=== PATIENT | female | born 1995 | race Caucasian/White ===

== ENCOUNTER 2017-05-22 19:13 | Inpatient (IN) | payer OTHER ==
[~2017-05-22] VITALS: Ht 167.6 cm; Wt 65.8 kg
[2017-05-22] MEDS ORDERED: OLANZAPINE 10 MG VIAL IM ONE (20:30)
[2017-05-22 20:45] LABS: BASOPHILS % (AUTO) 0.3 % (0.0-2.0); EOSINOPHILS # (AUTO) 0.1 /CMM (0.0-0.7); EOSINOPHILS % (AUTO) 0.6 % (0.0-6.0); HEMATOCRIT 39 % (33-45); HEMOGLOBIN 13.9 g/dL (11.5-14.8); LYMPHOCYTES # (AUTO) 2.2 /CMM (0.8-4.8); LYMPHOCYTES % (AUTO) 15.1 % (20.0-44.0); MEAN CORPUSCULAR HEMOGLOBIN 32 PG (26.0-33.0); MEAN CORPUSCULAR HGB CONC 36 g/dl (31.0-36.0); MEAN CORPUSCULAR VOLUME 90 fL (82-100); MONOCYTES # (AUTO) 1.2 /CMM (0.1-1.30); MONOCYTES % (AUTO) 8.2 % (2.0-12.0); NEUTROPHILS # (AUTO) 10.8 /CMM (1.8-8.9); NEUTROPHILS % (AUTO) 75.8 % (43.0-81.0); PLATELET COUNT (AUTO) 352 /CMM (150-450); RDW COEFFICIENT OF VARIATION 12.3 (11.5-15.0); RED BLOOD CELL COUNT(AUTO) 4.31 MIL/uL (4.0-5.2); WHITE BLOOD COUNT (AUTO) 14.3 K/uL (4.3-11.0)
[2017-05-22 20:57] LABS: CALCIUM, SERUM 9.3 mg/dL (8.5-10.1); CARBON DIOXIDE 22 mmol/L (21-32); CHLORIDE 105 mmol/L (98-107); CREATININE 0.7 mg/dL (0.6-1.3); GLUCOSE 90 mg/dL (74-106); POTASSIUM 3.3 mmol/L (3.5-5.1); SODIUM SERUM 138 mmol/L (136-145); UREA NITROGEN, BLOOD 7 mg/dL (7-18)
[2017-05-22 21:04] LABS: ALANINE AMINOTRANSFERASE 29 U/L (12-78); ALCOHOL, BLOOD < 3 mg/dL (0-0); ALKALINE PHOSPHATASE 45 U/L (46-116); ASPARTATE AMINOTRANSFERASE 26 U/L (15-37); BILIRUBIN,DIRECT 0.2 mg/dL (0.0-0.2); BILIRUBIN,TOTAL 0.6 mg/dL (0.2-1.0); TOTAL PROTEIN, SERUM 7.9 g/dL (6.4-8.2)
[2017-05-22 21:07] LABS: ACETAMINOPHEN 0 ug/ml (10-30); SALICYLATE 0.9 mg/dL (2.8-20.0)
[2017-05-22 23:27] LABS: APPEARANCE,URINE SL CLOUDY (CLEAR); BILIRUBIN,URINE 1+ (NEGATIVE); BLOOD, URINE 3+ Ery/uL (NEGATIVE); KETONES,URINE 3+ (NEGATIVE); LEUKOCYTE ESTERASE ,URINE TRACE (NEGATIVE); NITRITE, URINE NEGATIVE (NEGATIVE); PH,URINE 5.5 (5.0-8.0); PROTEIN,URINE 1+ mg/dl (NEGATIVE); UGLUCOSE NEGATIVE (NEGATIVE); UROBILINOGEN,URINE 0.2 EU/dL (0.2)
[2017-05-22 23:34] LABS: BACTERIA,URINE Moderate /HPF (None Seen); RBC,URINE 21-50 /HPF (0-2); SQUAMOUS EPITHELIAL CELL,UR Moderate /HPF (None Seen)
[2017-05-22 23:35] LABS: COLOR,URINE DARK YELLO (YELLOW)
[2017-05-23] MEDS ORDERED: LORAZEPAM INJ 2 MG/ML VIAL IM/IV PRN (12:30)
[2017-05-23] MEDS ORDERED: LORAZEPAM INJ 2 MG/ML VIAL IM PRN (15:00)
[2017-05-23] MEDS ORDERED: diphenhydrAMINE HCL 50 MG/ML VIAL IM PRN (15:00)
[2017-05-23] MEDS ORDERED: HALOPERIDOL LACTATE INJ 5 MG/ML VIAL IM ONE (15:00)
[2017-05-23] MEDS: METHYLERGONOVINE MALEATE 0.2 MG/ML AMPUL IM SCH (17:45)
[2017-05-23 19:00] VITALS: BP 120/57
[2017-05-23 20:00] VITALS: BP 99/63
[2017-05-23 21:00] VITALS: BP 121/80
[2017-05-23] MEDS: OLANZAPINE 5 MG/TAB.RAPDIS PO SCH (21:05)
[2017-05-23] MEDS: diphenhydrAMINE HCL 50 MG/ML VIAL IM PRN (21:19)
[2017-05-23] MEDS: HALOPERIDOL LACTATE INJ 5 MG/ML VIAL IM PRN (21:19)
[2017-05-23] MEDS ORDERED: LORAZEPAM INJ 2 MG/ML VIAL IM ONE (21:30)
[2017-05-23] MEDS: IV NS 0.9% 1,000 ML IV PRN (21:36)
[2017-05-23 22:00] VITALS: BP 103/60
[2017-05-23 23:00] VITALS: BP 107/64
[2017-05-24] VITALS (22 sets, daily range): BP systolic 101–128; BP diastolic 49–86
[2017-05-24] MEDS: diphenhydrAMINE HCL 50 MG/ML VIAL IM PRN (06:08)
[2017-05-24] MEDS: HALOPERIDOL LACTATE INJ 5 MG/ML VIAL IM PRN ×2 (07:04→22:00)
[2017-05-24] MEDS: OLANZAPINE 5 MG/TAB.RAPDIS PO SCH ×2 (09:38→21:41)
[2017-05-24] MEDS: METHYLERGONOVINE MALEATE 0.2 MG/ML AMPUL IM SCH ×2 (09:38→16:13)
[2017-05-24] MEDS ORDERED: POTASSIUM CHLORIDE 20 MEQ POWDER PACKET PO ONE (17:00)
[2017-05-24] MEDS: IV NS 0.9% 1,000 ML IV PRN (19:47)
[2017-05-25] VITALS (10 sets, daily range): BP systolic 116–140; BP diastolic 53–80
[2017-05-25] MEDS: OLANZAPINE 5 MG/TAB.RAPDIS PO SCH ×2 (09:00→21:52)
[2017-05-25] MEDS: METHYLERGONOVINE MALEATE 0.2 MG/ML AMPUL IM SCH ×2 (09:00→17:00)
[2017-05-26 04:00] VITALS: BP 113/70
[2017-05-26] MEDS: OLANZAPINE 5 MG/TAB.RAPDIS PO SCH (09:00)
[2017-05-26] MEDS: METHYLERGONOVINE MALEATE 0.2 MG/ML AMPUL IM SCH ×2 (09:00→17:00)
[2017-05-26] MEDS ORDERED: MAGNESIUM HYDROXIDE 30 ML UDC PO PRN (19:00)
[2017-05-26] MEDS ORDERED: OLANZAPINE 5 MG/TAB.RAPDIS PO SCH (22:00)
[2017-05-26] MEDS ORDERED: ACETAMINOPHEN 325 MG TABLET PO ONE (23:00)
[2017-05-26] MEDS ORDERED: diphenhydrAMINE HCL 50 MG CAPSULE PO ONE (23:00)
[2017-05-27 04:47] LABS: APPEARANCE,URINE CLEAR (CLEAR); BILIRUBIN,URINE NEGATIVE (NEGATIVE); BLOOD, URINE 3+ Ery/uL (NEGATIVE); COLOR,URINE YELLOW (YELLOW); KETONES,URINE NEGATIVE (NEGATIVE); LEUKOCYTE ESTERASE ,URINE 1+ (NEGATIVE); NITRITE, URINE NEGATIVE (NEGATIVE); PH,URINE 6.5 (5.0-8.0); PROTEIN,URINE NEGATIVE (NEGATIVE); UGLUCOSE NEGATIVE (NEGATIVE); UROBILINOGEN,URINE 0.2 EU/dL (0.2)
[2017-05-27 04:55] LABS: BACTERIA,URINE Rare /HPF (None Seen); SQUAMOUS EPITHELIAL CELL,UR Few /HPF (None Seen)
[2017-05-27 08:00] VITALS: BP 116/77
[2017-05-27] MEDS: METHYLERGONOVINE MALEATE 0.2 MG/ML AMPUL IM SCH ×3 (09:00→18:30)
[2017-05-27] MEDS ORDERED: ACETAMINOPHEN 325 MG TABLET PO PRN (11:00)
[2017-05-27] MEDS ORDERED: OLAN5TAB6 PO (12:15)
[2017-05-27] MEDS ORDERED: LOPERAMIDE HCL (2 MG CAP) 2 MG CAPSULE PO PRN (16:30)
[2017-05-27 18:45] VITALS: BP 114/78
== END 2017-05-27 19:22 | disposition home or self-care (01) | DRG 779 ==
LOC: EDBD 19:15 → ER 19:15 → MED 05-23 11:34 → ICU 05-23 18:56 → MEDSG1 05-25 05:54 → MED 05-27 06:12
PROVIDERS: ADMIT Internal Medicine; ATTEND Internal Medicine
DX: O03.9 Complete or unspecified spontaneous abortion without complication (principal); F19.10 Other psychoactive substance abuse, uncomplicated; T14.91XA Suicide attempt, initial encounter; F29 Unspecified psychosis not due to a substance or known physiological condition; Z59.0 Homelessness; Y93.9 Activity, unspecified; Y92.89 Other specified places as the place of occurrence of the external cause; F32.9 Major depressive disorder, single episode, unspecified
CPT/HCPCS: 36415; 76856-TC; 80048-TC; 80076-TC; 80305; 81000-TC; 84702-TC; 84703-TC; 85025-TC; 86850-TC; 87081-TC; 87086-TC; A4217; A4606; G0480; J1200; J1630; J2060; J2210; J7030; Q0163; Z7610